=== PATIENT | female | born 1990 | race Caucasian/White ===

== ENCOUNTER 2016-12-14 23:34 | Inpatient (IN) ==
[2016-12-14] MEDS ORDERED: SODIUM CHLORIDE 0.9% INJ SCH (23:45)
[2016-12-14] MEDS ORDERED: PEPCID PO ONE (23:51)
[2016-12-14] MEDS ORDERED: TYLENOL PO PRN (23:51)
[2016-12-14] MEDS ORDERED: PITOCIN 30 UNITS/LR 30 UNITS/500 ML IV.SOLN IV SCH (23:51)
[2016-12-14] MEDS ORDERED: STADOL IV PRN (23:51)
[2016-12-14] MEDS ORDERED: PEPCID PO PRN (23:51)
[2016-12-14] MEDS ORDERED: LR 1,000 ML IV SCH (23:51)
[2016-12-14] MEDS ORDERED: PEPCID IV PRN (23:51)
[2016-12-14] MEDS ORDERED: ZOFRAN IV PRN (23:51)
[2016-12-14] MEDS ORDERED: KEFZOL 1 GM/D5W 1 GM/50 ML IVPB IV PRN (23:51)
[2016-12-14] MEDS ORDERED: REGLAN PO ONE (23:51)
[2016-12-15 00:17] LABS: MANUAL DIFF NEEDED? NO
[2016-12-15 00:17] LABS: URINE SOURCE VOIDED
[2016-12-15 00:36] LABS: BASO% 0.6 % (0.0-0.8); EOS# 0.21 X1000 (0.0-0.7); EOS% 1.6 % (0.0-10.0); HEMATOCRIT 33.4 % (37.0-47.0); IMM GRAN# 0.06 X1000 (0.0-0.04); IMM GRAN% 0.5 % (0.0-0.5); LYMPH# 2.59 X1000 (1.2-3.4); LYMPH% 20.1 % (20.5-51.1); MCH 25.6 PG (27-31); MCHC 32.9 g/dL (33-37); MCV 77.7 FL (81-99); MONO# 0.81 X1000 (0.11-0.59); MONO% 6.3 % (1.7-9.3); NEUT% 70.9 % (42.2-75.2); PLT 153 X1000 (130-400)
[2016-12-15 00:41] LABS: UR AMPHETAMINES QUAL NONE DETECTED (NONE DETECT); UR BARBITUATES QUAL NONE DETECTED (NONE DETECT); UR BENZODIAZEPIN QUAL NONE DETECTED (NONE DETECT); UR CANNABINOIDS QUAL NONE DETECTED (NONE DETECT); UR COCAINE QUAL NONE DETECTED (NONE DETECT); UR MDMA QUAL NONE DETECTED (NONE DETECT); UR METHADONE QUAL NONE DETECTED (NONE DETECT); UR METHAMPHETAMINE QUAL NONE DETECTED (NONE DETECT); UR OPIATES QUAL NONE DETECTED (NONE DETECT); UR OXYCODONE QUAL NONE DETECTED (NONE DETECT); UR PCP QUAL NONE DETECTED (NONE DETECT); UR TCA QUAL NONE DETECTED (NONE DETECT)
[2016-12-15 00:57] LABS: BILIRUBIN URINE NEGATIVE (NEGATIVE); BLOOD URINE TRACE (NEGATIVE); CLARITY CLEAR (CLEAR); COLOR YELLOW; GLUCOSE URINE NEGATIVE (NEGATIVE); LEUKOCYTES URINE TRACE (NEGATIVE); NITRITE URINE NEGATIVE (NEGATIVE); PROTEIN URINE TRACE mg/dL (NEGATIVE); UROBILINOGEN URINE NORMAL
[2016-12-15] MEDS ORDERED: MOTRIN PO PRN (01:19)
[2016-12-15] MEDS ORDERED: BENADRYL PO PRN (01:19)
[2016-12-15] MEDS ORDERED: NORCO-10 PO PRN (01:19)
[2016-12-15] MEDS ORDERED: BENADRYL IV PRN (01:19)
[2016-12-15] MEDS ORDERED: NORCO-5 PO PRN (01:19)
[2016-12-15] MEDS ORDERED: HYDROXYZINE PO PRN (01:19)
[2016-12-15] MEDS ORDERED: AMBIEN PO PRN (01:19)
[2016-12-15] MEDS ORDERED: PERCOCET-5 PO PRN (01:19)
[2016-12-15] MEDS ORDERED: PERI MEDS (DERMOPLAST/NUPERCAINAL/TUCKS) MISC PRN (01:19)
[2016-12-15] MEDS ORDERED: HYDROXYZINE IM PRN (01:19)
[2016-12-15] MEDS ORDERED: PERCOCET-10 PO PRN (01:19)
[2016-12-15] MEDS ORDERED: BOOSTRIX VACCINE IM ONE (01:19)
[2016-12-15] MEDS ORDERED: PITOCIN 20 UNITS/LR 20 UNITS/1,000 ML IV.SOLN IV SCH (01:19)
[2016-12-15] MEDS ORDERED: MINERAL OIL PO PRN (01:19)
[2016-12-15] MEDS ORDERED: PITOCIN IM PRN (01:19)
[2016-12-15] MEDS ORDERED: PITOCIN 30 UNITS/LR 30 UNITS/500 ML IV.SOLN IV ONE (01:19)
[2016-12-15] MEDS ORDERED: CYTOTEC PO PRN (01:19)
[2016-12-15] MEDS ORDERED: XYLOCAINE-MPF 1% INJ PRN (01:19)
[2016-12-15] MEDS ORDERED: M-M-R II VACCINE SUBQ ONE (01:19)
--- NOTE | 2016-12-15 04:50 | OPERATIVE NOTE ---
PROCEDURE DATE: 12/15/2016 DELIVERING PHYSICIAN: Dr. Stahl. TYPE OF DELIVERY: Spontaneous controlled vaginal delivery. ANESTHESIA: None. FINDINGS: At 0038, this 6 pound 15 ounce female was delivered in occiput anterior presentation. Apgars were 9 at 1 minute and 10 at 5 minutes. SUMMARY: Homa Tay is a 26-year-old 3, para 2-0-0-2, at term gestation. Her blood type is A negative, rubella immune. Hepatitis B surface antigen, HIV, and group B strep are negative. She presented to Labor and Delivery after spontaneous rupture membranes at 2230. Upon arrival, she was 8 cm dilated. She was admitted, and very soon became complete. She began pushing and rapidly crowned. At that point, was placed in the dorsal lithotomy position, and a spontaneous controlled vaginal delivery occurred. Once the 's head was delivered, nuchal cord was reduced. The cord was clamped and cut, and the was handed to the nurses for further care and evaluation. Cord blood was obtained. Placenta was spontaneously delivered and was intact. There were no cervical or vaginal lacerations. Blood loss estimated at 150 mL. Patient remained in the LDR recovering without difficulty. cc: Fab Stahl MD
[2016-12-15] MEDS: PRECARE PO SCH (08:09)
[2016-12-15] MEDS: PERICOLACE PO SCH (22:33)
[2016-12-16 06:32] LABS: HEMATOCRIT 28.3 % (37.0-47.0); HEMOGLOBIN 8.9 g/dL (12.0-16.0); MCHC 31.4 g/dL (33-37); MCV 79.5 FL (81-99); MPV 11.4 FL (7.4-10.4); RBC 3.56 XMIL (4.2-5.4)
[2016-12-16] MEDS: PRECARE PO SCH (09:15)
[2016-12-16] MEDS: PERICOLACE PO SCH (21:28)
[2016-12-17] MEDS: PRECARE PO SCH (08:31)
[2016-12-17 08:56] VITALS: BP 109/67
--- NOTE | 2016-12-17 13:28 | DISCHARGE SUMMARY ---
ADMISSION DATE: 12/14/2016 DISCHARGE DATE: 12/17/2016 ADMISSION DIAGNOSES: 1. Term . 2. Spontaneous rupture of membranes. 3. Active labor. DISCHARGE DIAGNOSES: 1. Term . 2. Spontaneous rupture of membranes. 3. Active labor. CONDITION: Stable. DIET: As tolerated. ACTIVITY: Routine . MEDICATIONS: She is to continue her vitamins with iron. She is to take stool softener as needed and [place] 5. Prescription has been written. She can take [id number] nonsteroidals for cramping. FOLLOW UP: She is to follow up in [address] Stahl. Please refer to Ms. Tay records and delivery note. DISCHARGE PHYSICAL EXAM: General: Currently, she is doing well. She is day 2, ambulating and voiding without difficulty, tolerating p.o., desiring discharge. Vital signs: Stable. She is afebrile. Pulse rate is a little high, around 100, but patient seems to be tolerating that well. Neck: Supple. Lungs: Clear. Heart: Regular sinus rhythm. Abdomen: Distended. Uterus is firm, nontender. Extremities: No cyanosis, clubbing, edema in her extremities. LABORATORY DATA: Hemoglobin from yesterday at 8.9. PLAN: We will discharge with above instructions. cc: MD Fab Smith MD
== END 2016-12-17 12:40 | disposition home or self-care (01) ==
LOC: P.LD 23:34 → P.WC 12-15 02:54
PROVIDERS: ADMIT Obstetrics & Gynecology; ATTEND Obstetrics & Gynecology